=== PATIENT | male | born 1970 | race Caucasian/White ===

== ENCOUNTER → 2019-11-20 10:07 | Outpatient (BNVA) | payer MEDICAID, SELFPAY | PROVIDERS: Family Provider Nurse Practitioner Primary Care; Visit Provider Nurse Practitioner Psychiatric/Mental Health | DX: F33.1 Major depressive disorder, recurrent, moderate (principal); F43.12 Post-traumatic stress disorder, chronic; F41.1 Generalized anxiety disorder; M79.7 Fibromyalgia | CPT/HCPCS: 99214 ==

== ENCOUNTER → 2020-04-20 07:42 | Outpatient (BNVA) | payer MEDICAID, SELFPAY | PROVIDERS: Family Provider Nurse Practitioner Primary Care; Visit Provider Nurse Practitioner Psychiatric/Mental Health | DX: F33.1 Major depressive disorder, recurrent, moderate (principal); F43.12 Post-traumatic stress disorder, chronic; F41.1 Generalized anxiety disorder | CPT/HCPCS: 99214 ==

== ENCOUNTER → 2020-05-25 09:20 | Outpatient (BNVA) | payer MEDICAID, SELFPAY | PROVIDERS: Family Provider Nurse Practitioner Primary Care; Visit Provider Nurse Practitioner Psychiatric/Mental Health | DX: F43.12 Post-traumatic stress disorder, chronic (principal); F33.1 Major depressive disorder, recurrent, moderate; F41.1 Generalized anxiety disorder | CPT/HCPCS: 99214 ==

== ENCOUNTER → 2020-06-24 09:19 | Outpatient (BNVA) | payer MEDICAID, SELFPAY | PROVIDERS: Family Provider Nurse Practitioner Primary Care; Visit Provider Nurse Practitioner Psychiatric/Mental Health | DX: F43.12 Post-traumatic stress disorder, chronic (principal); F33.1 Major depressive disorder, recurrent, moderate; F41.1 Generalized anxiety disorder | CPT/HCPCS: 99214 ==

== ENCOUNTER → 2020-10-04 07:41 | Outpatient (BNVA) | payer MEDICAID, SELFPAY | PROVIDERS: Family Provider Nurse Practitioner Primary Care; Visit Provider Nurse Practitioner Psychiatric/Mental Health | DX: F31.63 Bipolar disorder, current episode mixed, severe, without psychotic features (principal); F43.12 Post-traumatic stress disorder, chronic; F41.1 Generalized anxiety disorder | CPT/HCPCS: 99214 ==

== ENCOUNTER → 2020-11-04 08:43 | Outpatient (BNVA) | payer MEDICAID, SELFPAY | PROVIDERS: Family Provider Nurse Practitioner Primary Care; Visit Provider Nurse Practitioner Psychiatric/Mental Health | DX: F31.63 Bipolar disorder, current episode mixed, severe, without psychotic features (principal); F43.12 Post-traumatic stress disorder, chronic; F41.1 Generalized anxiety disorder | CPT/HCPCS: 99214 ==

== ENCOUNTER → 2020-11-15 07:38 | Outpatient (BNVA) | payer MEDICAID, SELFPAY | PROVIDERS: Family Provider Nurse Practitioner Primary Care; Visit Provider Nurse Practitioner Psychiatric/Mental Health | DX: F33.2 Major depressive disorder, recurrent severe without psychotic features (principal); F43.12 Post-traumatic stress disorder, chronic; F41.1 Generalized anxiety disorder | CPT/HCPCS: 99214 ==

== ENCOUNTER → 2020-11-29 08:24 | Outpatient (BNVA) | payer MEDICAID, SELFPAY | PROVIDERS: Family Provider Nurse Practitioner Primary Care; Visit Provider Nurse Practitioner Psychiatric/Mental Health | DX: F33.2 Major depressive disorder, recurrent severe without psychotic features (principal); F43.12 Post-traumatic stress disorder, chronic; F41.1 Generalized anxiety disorder | CPT/HCPCS: 99214 ==

== ENCOUNTER → 2021-02-08 07:18 | Outpatient (BNVA) | payer MEDICAID, SELFPAY | PROVIDERS: Family Provider Nurse Practitioner Primary Care; Visit Provider Nurse Practitioner Psychiatric/Mental Health | DX: F33.2 Major depressive disorder, recurrent severe without psychotic features (principal); F43.12 Post-traumatic stress disorder, chronic; F41.1 Generalized anxiety disorder | CPT/HCPCS: 99213 ==

== ENCOUNTER → 2021-05-29 07:18 | Outpatient (BNVA) | payer MEDICAID, SELFPAY | PROVIDERS: Family Provider Nurse Practitioner Primary Care; Visit Provider Nurse Practitioner Psychiatric/Mental Health | DX: F33.2 Major depressive disorder, recurrent severe without psychotic features (principal); F43.12 Post-traumatic stress disorder, chronic; F41.1 Generalized anxiety disorder; Z79.899 Other long term (current) drug therapy | CPT/HCPCS: 99214 ==

== ENCOUNTER → 2021-05-30 09:44 | Outpatient (BNVA) | payer MEDICAID, SELFPAY | PROVIDERS: Family Provider Nurse Practitioner Primary Care; Visit Provider Nurse Practitioner Psychiatric/Mental Health | DX: Z79.899 Other long term (current) drug therapy (principal) | CPT/HCPCS: 80053; 80061; 83036 ==

== ENCOUNTER → 2021-08-22 08:25 | Outpatient (BNVA) | payer MEDICAID, SELFPAY | PROVIDERS: Family Provider Nurse Practitioner Primary Care; Visit Provider Nurse Practitioner Psychiatric/Mental Health | DX: F31.64 Bipolar disorder, current episode mixed, severe, with psychotic features (principal); F43.12 Post-traumatic stress disorder, chronic; F41.1 Generalized anxiety disorder; Z79.899 Other long term (current) drug therapy | CPT/HCPCS: 99214 ==

== ENCOUNTER → 2021-09-05 08:01 | Outpatient (BNVA) | payer MEDICAID, SELFPAY | PROVIDERS: Family Provider Nurse Practitioner Primary Care; Visit Provider Nurse Practitioner Psychiatric/Mental Health | DX: F31.64 Bipolar disorder, current episode mixed, severe, with psychotic features (principal); F43.12 Post-traumatic stress disorder, chronic; F41.1 Generalized anxiety disorder; Z79.899 Other long term (current) drug therapy | CPT/HCPCS: 99215 ==

== ENCOUNTER → 2021-09-22 09:27 | Outpatient (BNVA) | payer MEDICAID, SELFPAY | PROVIDERS: Family Provider Nurse Practitioner Primary Care; Visit Provider Nurse Practitioner Psychiatric/Mental Health | DX: F31.64 Bipolar disorder, current episode mixed, severe, with psychotic features (principal); F43.12 Post-traumatic stress disorder, chronic; F41.1 Generalized anxiety disorder; Z79.899 Other long term (current) drug therapy | CPT/HCPCS: 80053; 80061; 83036; 99214 ==

== ENCOUNTER → 2021-11-30 08:25 | Outpatient (BNVA) | payer MEDICAID, SELFPAY | PROVIDERS: Family Provider Nurse Practitioner Primary Care; Visit Provider Nurse Practitioner Psychiatric/Mental Health | DX: F31.64 Bipolar disorder, current episode mixed, severe, with psychotic features (principal); F43.12 Post-traumatic stress disorder, chronic; F41.1 Generalized anxiety disorder | CPT/HCPCS: 99214 ==

== ENCOUNTER → 2021-12-22 07:16 | Outpatient (BNVA) | payer MEDICARE, MEDICAID, SELFPAY | PROVIDERS: Family Provider Nurse Practitioner Primary Care; Visit Provider Nurse Practitioner Psychiatric/Mental Health | DX: F31.64 Bipolar disorder, current episode mixed, severe, with psychotic features (principal); F43.12 Post-traumatic stress disorder, chronic; F41.1 Generalized anxiety disorder | CPT/HCPCS: 99214 ==

== ENCOUNTER → 2022-08-24 14:02 | Outpatient (BNVA) | payer MEDICARE, MEDICAID, OTHER, SELFPAY | PROVIDERS: Family Provider Nurse Practitioner Primary Care; Visit Provider Nurse Practitioner Psychiatric/Mental Health | DX: Z03.89 Encounter for observation for other suspected diseases and conditions ruled out (principal); Z79.899 Other long term (current) drug therapy; F31.64 Bipolar disorder, current episode mixed, severe, with psychotic features; F43.12 Post-traumatic stress disorder, chronic; F41.1 Generalized anxiety disorder | CPT/HCPCS: 80053; 82306; 84402 ==